=== PATIENT | male | born 1940 | race Caucasian/White ===

== ENCOUNTER → 2017-08-20 | Outpatient (CLI) | payer MEDICARE, BC ==
[~2017-08-20] MED LIST: ADVA250A INH; AZIT250T43 PO; DIOV40TA PO; DULE200A INH; HYDR12.56 PO; NEXI20CA PO; NORV2.5T11 PO; PRED20 PO; VENTAER INH
--- NOTE | 2017-08-21 09:52 | RSPPFT ---
DATE OF PROCEDURE: 08/20/17 COMMENTS: VOLUMES DYNAMIC: FVC mildly reduced; FEV1 severely reduced. STATIC: FRC and TLC normal; RV mildly increased. FLOWS: FEV1% and FEF 25-75 severely reduced. DIFFUSION: Mildly reduced. FLOW VOLUME LOOP: Pattern of variable intrathoracic airways obstruction. IMPRESSION: Severe obstructive ventilatory defect with a mild reduction in diffusion and mild hyperinflation. There is no significant improvement post-bronchodilator.
== END ==
LOC: HRSP 09:41
PROVIDERS: ATTEND Internal Medicine
DX: J45.909 Unspecified asthma, uncomplicated (principal)
CPT/HCPCS: 94060; 94618; 94726; 94729; 95012